=== PATIENT | female | born 1950 | race Caucasian/White ===

== ENCOUNTER 2022-04-20 12:21 | Emergency (ER) | payer OTHER ==
[2022-04-20 13:52] LABS: HEMOGLOBIN 17.5 gm/dl (12.3-15.3); RED BLOOD COUNT 5.51 M/UL (4.00-5.10); WHITE BLOOD COUNT 9.8 K/UL (4.5-11.0)
[2022-04-20] MEDS ORDERED: ENDOCET 5-3251 EACH PO (20:40)
[2022-04-20] MEDS ORDERED: PLAVIX 75 MG TA75 MG PO (20:43)
== END 2022-04-20 21:05 | disposition home or self-care (01) ==
LOC: ER1 12:21
PROVIDERS: Physician Assistant
DX: E11.51 Type 2 diabetes mellitus with diabetic peripheral angiopathy without gangrene (principal); K80.20 Calculus of gallbladder without cholecystitis without obstruction; I70.1 Atherosclerosis of renal artery; I99.8 Other disorder of circulatory system; E78.5 Hyperlipidemia, unspecified; F17.200 Nicotine dependence, unspecified, uncomplicated; E03.9 Hypothyroidism, unspecified; I51.9 Heart disease, unspecified
CPT/HCPCS: 73630; 75635; 80053; 83605; 85025; 85610; 85652; 85730; 86140; 87040; 93005; 93925; 96374; 96375; 96376; 99284; J2270; J2405; Q9967

== ENCOUNTER → 2022-05-28 | Outpatient (CLI) | payer OTHER ==
[~2022-05-28] MED LIST: ENDOCET 5-3251 EACH PO; PLAVIX 75 MG TA75 MG PO
[2022-05-28 15:15] LABS: HEMOGLOBIN 17.5 gm/dl (12.3-15.3); RED BLOOD COUNT 5.47 M/UL (4.00-5.10); WHITE BLOOD COUNT 8.6 K/UL (4.5-11.0)
== END ==
LOC: LAB 13:52
PROVIDERS: Surgery
DX: Z01.812 Encounter for preprocedural laboratory examination (principal); I75.021 Atheroembolism of right lower extremity; I70.213 Atherosclerosis of native arteries of extremities with intermittent claudication, bilateral legs
CPT/HCPCS: 36415; 80048; 85025; 85027; 85610